=== PATIENT | male | born 1955 | race Caucasian/White ===

== ENCOUNTER 2017-10-25 16:06 | Emergency (ER) | payer BC ==
[2017-10-25 16:23] LABS: #Eosinphils 0.2 thou/uL (0.0-0.7); #Lymphocytes 2.2 thou/uL (1.20-3.40); #Monocytes 0.8 thou/uL (0.11-0.59); #Neutrophils 4.5 thou/uL (1.40-6.50); %Basophils 0.3 % (0.0-1.0); %Eosinophils 2.2 % (0.0-10.0); %Lymphocytes 28.1 % (21.0-51.0); %Neutrophils 58.5 % (42.0-75.0); Hemoglobin 17.2 g/dL (14.0-18.0); Mean Corpuscular HGB CONC 35.1 g/dL (32.0-36.0); Mean Corpuscular Hemoglobin 31.3 pg (27.0-31.0); Mean Corpuscular Volume 89.1 fl (80.0-94.0); Mean Platelet Volume 7.9 fL (7.4-10.4); Platelet Count 219 thou/uL (130-400); RBC Distribution Width 12.4 % (11.5-14.5); Red Blood Cell (RBC) Count 5.49 mill/uL (4.70-6.10); White Blood Cell (WBC) Count 7.7 thou/uL (4.8-10.8)
[2017-10-25 16:47] LABS: CKMB 1.1 ng/mL (0-6.6); Troponin I Less than 0.010 ng/mL (< 0.028)
[2017-10-25 16:48] LABS: ALT (SGPT) 17 U/L (8-55); AST (SGOT) 20 U/L (5-34); Albumin 4.4 g/dL (3.4-4.8); Alkaline Phosphatase 68 U/L (40-150); Anion Gap 17 mmol/L (10-20); BUN (Urea Nitrogen) 12 mg/dL (8.4-25.7); Bilirubin, Total 1.1 mg/dL (0.2-1.2); CK (CPK) 57 U/L (30-200); Calc. Creatinine Clearance 0 mL/min (70-130); Calcium 9.6 mg/dL (7.8-10.44); Carbon Dioxide 22 mmol/L (23-31); Chloride 108 mmol/L (98-107); Estimated GFR-MDRD Greater than 90; Globulin 3.2 g/dL (2.4-3.5); Glucose 102 mg/dL (80-115); Protein, Total 7.6 g/dL (5.8-8.1); Sodium 143 mmol/L (136-145)
--- NOTE | 2017-10-25 20:22 | CT ---
NONCONTRAST CT HEAD: 10/25/17 HISTORY: Dizziness and hypertension. Dizziness started today. COMPARISON: None available. FINDINGS: There is no evidence of a hemorrhage, acute infarction, mass effect, or midline shift. Ventricular sy stem is normal in size, shape and position. There is a mucous retention cyst in the left maxillary an trum. Mastoid air cells are clear. Calvarial structures are intact. IMPRESSION: No acute intracranial abnormality demonstrated. POS: [facility]
[2017-10-25] MEDS ORDERED: hydrALAZINE 20 MG/ML VIAL ONE (20:42)
--- NOTE | 2017-11-09 00:25 | EKG ---
Test Reason : ER INDICATION Blood Pressure : / mmHG Vent. Rate : 094 BPM Atrial Rate : 094 BPM P-R Int : 146 ms QRS Dur : 074 ms QT Int : 348 ms P-R-T Axes : 020 035 005 degrees QTc Int : 435 ms Normal sinus rhythm Normal ECG Confirmed by VAL DURAN ([id number]), commercial production editor GAUDENCIO VÁSQUEZ ([id number] on 11/09/2017 12:24:41 AM Referred By: Confirmed By:VAL DURAN
== END 2017-10-25 21:51 | disposition home or self-care (01) ==
LOC: ERS 16:06
DX: R42 Dizziness and giddiness (principal); E78.00 Pure hypercholesterolemia, unspecified; F41.9 Anxiety disorder, unspecified; F32.9 Major depressive disorder, single episode, unspecified; Z79.899 Other long term (current) drug therapy
CPT/HCPCS: 70450; 80053; 82550; 82553; 84484; 85025; 93005; 94760; 96374; J0360

== ENCOUNTER 2018-05-22 10:36 | Outpatient (CLI) | payer BC ==
--- NOTE | 2018-05-22 12:56 | RAD ---
LUMBAR SPINE 4 VIEWS: HISTORY: Low back pain. FINDINGS: Five lumbar-type vertebrae. Pedicles are intact. Mild rightward convex rotatory scoliotic curvature . Vertebral body heights are maintained. Disk space narrowing and minimal degenerative spondylolist hesis at the L4-5 level. It increases from 4 mm on extension to 8 mm upon flexion. Gas-disk phenomenon at the L3-4 level. IMPRESSION: Degenerative changes. Translational motion at the L4-5 level. POS: [facility]
--- NOTE | 2018-05-22 13:48 | MRI ---
MRI THORACIC SPINE WITHOUT CONTRAST: HISTORY: Low back pain. COMPARISON: None. TECHNIQUE: MRI lumbar spine is performed without intravenous Gadolinium administration. Multisequential, multip lanar imaging is performed. FINDINGS: Appropriate T1 marrow signal intensity of the lumbar vertebrae. Vertebral body height is maintained. There is no fracture. No significant STIR hyperintensity to suggest edema or ligamentous injury. 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 There is mild associated STIR hyperintensity. There is 4.5 mm of anterolisthesis of L4 upon L5. Symmetric signal intensity of the psoas muscles. Visualized solid organs have appropriate signal int ensity. Probable 1 cm cyst emanating from the upper pole of the right kidney. Conus medullaris terminates at the mid L1 level. T12-L1: Adequate disk hydration. No significant central canal stenosis or neural foraminal narrowin g. L1-L2: Adequate disk hydration. There is broad-based disk bulge, ligamentum flavum thickening, and facet hypertrophy result in mild to moderate central canal stenosis of the disk space. There appears to be central superior disk extrusion with resultant moderate narrowing of the central spinal canal. Mild to moderate bilateral neural foraminal narrowing. L2-L3: Desiccation with mild loss of disk space height. No significant posterior disk abnormality. No significant central canal stenosis. Neural foramen are patent bilaterally. L3-L4: Adequate disk hydration. There is a broad-based disk bulge, ligamentum flavum thickening, an d facet hypertrophy that result in mild central canal stenosis. Mild to moderate right and left fora alli narrowing predominantly due to disk material. L4-L5: Desiccation with mild loss of disk space height. Broad-based disk bulge, ligamentum flavum t hickening, and facet hypertrophy result in moderate to severe central canal stenosis. There is fluid in the left facet joint. Moderate right and left neural foraminal narrowing. L5-S1: No significant posterior disk abnormality. No significant central canal stenosis. Moderate bilateral foraminal narrowing. IMPRESSION: 1. Degenerative changes of the lumbar spine as above. There is moderate to severe central canal popeye nosis at L4-L5. 2. Moderate central canal stenosis at L1-L2 as well as at the mid L1 level secondary to superior dis k extrusion. POS: [facility]
== END 2018-05-22 10:37 | disposition home or self-care (01) ==
LOC: TBSIIMAG 10:36
PROVIDERS: ATTEND Surgery
DX: M54.5 Low back pain (principal); M47.896 Other spondylosis, lumbar region; M48.061 Spinal stenosis, lumbar region without neurogenic claudication
CPT/HCPCS: 72110; 72148

== ENCOUNTER 2024-06-11 11:16 | Outpatient (CLI) | payer MEDICARE | END 2024-06-11 11:17 | disposition home or self-care (01) | LOC: SCSRAD 11:16 | PROVIDERS: ATTEND Family Medicine | DX: M25.562 Pain in left knee (principal) ==